=== PATIENT | female | born 1995 | race Caucasian/White ===

== ENCOUNTER 2021-02-07 15:35 | Outpatient (CLI) | payer OTHER ==
[~2021-02-07 15:35] MED LIST: IBUPROFEN600 MG PO; LORTAB 5-325 M1 EACH PO
== END 2021-02-07 18:27 | disposition home or self-care (01) ==
LOC: GENOP 15:35
DX: O36.8330 Maternal care for abnormalities of the fetal heart rate or rhythm, third trimester, not applicable or unspecified (principal); O99.213 Obesity complicating pregnancy, third trimester; E66.9 Obesity, unspecified; O99.353 Diseases of the nervous system complicating pregnancy, third trimester; G43.909 Migraine, unspecified, not intractable, without status migrainosus; O99.283 Endocrine, nutritional and metabolic diseases complicating pregnancy, third trimester; E55.9 Vitamin D deficiency, unspecified; Z79.899 Other long term (current) drug therapy; Z3A.37 37 weeks gestation of pregnancy
CPT/HCPCS: 59025; 81001

== ENCOUNTER 2021-02-20 09:19 | Inpatient (IN) | payer OTHER ==
[~2021-02-20] VITALS: Ht 172.7 cm; Wt 117.9 kg
[2021-02-21] MEDS ORDERED: FAMOTIDINE20 MG PO (06:29)
[2021-02-21 07:09] LABS: HEMOGLOBIN 11.1 gm/dl (12.3-15.3); RED BLOOD COUNT 4.16 M/UL (4.00-5.10); WHITE BLOOD COUNT 7.3 K/UL (4.5-11.0)
[2021-02-21] MEDS ORDERED: COLACE100 MG PO (17:20)
[2021-02-21] MEDS ORDERED: IBUPROFEN800 MG PO (17:20)
[2021-02-21] MEDS ORDERED: FERREX 150 FOR1 EAC1 PO (17:20)
[2021-02-22 07:06] LABS: HEMOGLOBIN 10.1 gm/dl (12.3-15.3)
== END 2021-02-22 20:05 | disposition home or self-care (01) | DRG 807 ==
LOC: LBRF 09:19 → OB 02-21 05:17
PROVIDERS: ADMIT Obstetrics & Gynecology
PROC: 10E0XZZ Delivery of Products of Conception, External Approach (ICD-10-PCS; principal; 2021-02-21)
PROC: 10907ZC Drainage of Amniotic Fluid, Therapeutic from Products of Conception, Via Natural or Artificial Opening (ICD-10-PCS; 2021-02-21)
PROC: 3E033VJ Introduction of Other Hormone into Peripheral Vein, Percutaneous Approach (ICD-10-PCS; 2021-02-21)
PROC: 4A1HXCZ Monitoring of Products of Conception, Cardiac Rate, External Approach (ICD-10-PCS; 2021-02-21)
DX: O99.354 Diseases of the nervous system complicating childbirth (principal); Z37.0 Single live birth; O99.214 Obesity complicating childbirth; Z20.822 Contact with and (suspected) exposure to COVID-19; Z3A.39 39 weeks gestation of pregnancy; G43.909 Migraine, unspecified, not intractable, without status migrainosus; Z82.49 Family history of ischemic heart disease and other diseases of the circulatory system; Z83.3 Family history of diabetes mellitus
CPT/HCPCS: 36415; 51702; 81001; 85014; 85018; 85025; 90715; J2590; J2795; J7120; U0002; U0003